=== PATIENT | female | born 1955 | race African-American/Black ===

== ENCOUNTER 2018-07-20 09:14 | Outpatient (CLI) | payer MEDICARE, MEDICAID ==
--- NOTE | 2018-07-20 09:57 | ULT ---
FUS Renal Bilateral STANDARD History: [Chronic kidney disease.] Comparison: None. Findings: Real-time grayscale and color evaluation of the kidneys and urinary bladder was performed. Right kidney measures 10.9 x 4.2 x 4.2 cm and left kidney measures 9.2 x 3.4 x 3.3 cm. Prevoid urinar y bladder volume is 42 mL. Urinary bladder wall thickness is 4 mm. No renal mass, hydronephrosis, or abnormal calcifications. Impression: No evidence for obstructive uropathy.
== END 2018-07-20 09:15 | disposition home or self-care (01) ==
LOC: NAV ULT 09:14
PROVIDERS: ATTEND Internal Medicine Nephrology
DX: N18.4 Chronic kidney disease, stage 4 (severe) (principal)
CPT/HCPCS: 76770

== ENCOUNTER 2019-05-13 09:52 | Outpatient (CLI) | payer MEDICARE, MEDICAID ==
--- NOTE | 2019-05-13 11:26 | RAD ---
RIGHT FOOT THREE VIEWS: HISTORY: Bilateral foot pain. FINDINGS: Prominent arthrosis and degenerative changes and prominent vascular calcifications are noted. No evid ence for acute fracture or dislocation. IMPRESSION: 1. Degenerative and osteoarthrosis changes. 2. Prominent arteriovascular calcifications. 3. No fracture or dislocation. POS: OFF
--- NOTE | 2019-05-13 11:31 | RAD ---
LEFT FOOT THREE VIEWS: HISTORY: Bilateral foot pain. FINDINGS: Arthrosis and degenerative changes are noted involving the foot. Prominent arteriovascular calcificat ions. No fracture or dislocation. IMPRESSION: 1. Arthrosis and degenerative changes without acute fracture or dislocation. 2. Prominent vascular calcifications. POS: OFF
== END 2019-05-13 09:53 | disposition home or self-care (01) ==
LOC: NAV RAD 09:52
PROVIDERS: ATTEND Nurse Practitioner Adult Health
DX: M79.671 Pain in right foot (principal); M79.672 Pain in left foot; I70.0 Atherosclerosis of aorta; M19.072 Primary osteoarthritis, left ankle and foot; M19.071 Primary osteoarthritis, right ankle and foot